=== PATIENT | female | born 1940 | race Caucasian/White ===

== ENCOUNTER 2017-06-20 12:56 | Day surgery (SDC) | payer MEDICARE, BC ==
[~2017-06-20] VITALS: Ht 165.2 cm; Wt 88.0 kg
[~2017-06-20 12:56] MED LIST: AMBIEN 10MG10 MG PO; APRESOLINE 25MG25 MG PO; ASPIRIN 81M81 MG/TA2 PO; BETAPACE 80MG80 MG PO; CARDIZEM CD 24240 MG PO; CATAPRES-TTS 10.1 M1 TD; COREG 25MG25 MG/TAB PO; COZAAR100 MG PO; EDARBI80 MG PO; HCTZ 25MG TAB25 MG PO; HYDROCORTISO28.35 G1 TP; LIPITOR 40MG TA40 MG PO; LOPRESSOR 225 MG/TAB PO; NORVASC 10MG10 MG PO; PRADAXA 150MG150 MG PO; PREDFORTE15ML OU; RT SPIRIVA18 MCG IH; THEO-24 20200 MG/CAP PO; TIKOSYN0.125 MG PO; XARELTO20 MG PO
[2017-06-20 14:02] VITALS: BP 151/48; PULSE 66; TEMP 98.5
[2017-06-20 14:08] LABS: POTASSIUM 4.6 mmol/L (3.4-5.0)
[2017-06-20] MEDS ORDERED: IMDUR 60MG60 MG/TAB PO (14:10)
[2017-06-20] MEDS ORDERED: FERROUS GL325 MG/TAB (14:11)
[2017-06-20] MEDS ORDERED: PACERONE200 MG PO (14:11)
[2017-06-20] MEDS ORDERED: XARELTO20 MG PO (14:12)
[2017-06-20 14:40] VITALS: BP 144/46; PULSE 70
[2017-06-20 14:42] LABS: THYROID STIMULATING HORMONE 3.4 uIU/mL (0.465-4.680)
[2017-06-20 15:15] VITALS: BP 112/36; PULSE 58; TEMP 98
[2017-06-20 15:30] VITALS: BP 126/77; PULSE 60
[2017-06-20 15:45] VITALS: BP 138/45; PULSE 59
[2017-06-20 16:00] VITALS: BP 148/48; PULSE 60
== END 2017-06-20 16:40 | disposition home or self-care (01) ==
LOC: COL.CAR 12:56
PROVIDERS: Internal Medicine Cardiovascular Disease
DX: I48.0 Paroxysmal atrial fibrillation (principal); I10 Essential (primary) hypertension; I25.10 Atherosclerotic heart disease of native coronary artery without angina pectoris; I27.20 Pulmonary hypertension, unspecified; J44.9 Chronic obstructive pulmonary disease, unspecified; G47.33 Obstructive sleep apnea (adult) (pediatric); E78.2 Mixed hyperlipidemia; E66.9 Obesity, unspecified; I34.0 Nonrheumatic mitral (valve) insufficiency; Z68.34 Body mass index [BMI] 34.0-34.9, adult; Z87.891 Personal history of nicotine dependence; Z82.49 Family history of ischemic heart disease and other diseases of the circulatory system
CPT/HCPCS: J2250; J3010

== ENCOUNTER 2017-08-08 10:35 | Emergency (ER) | payer MEDICARE, BC ==
[~2017-08-08] VITALS: Ht 165.1 cm; Wt 83.2 kg
[~2017-08-08 10:35] MED LIST changes: +CATAPRES-TTS 20.2 M1 TD; +FERROUS GL325 MG/TAB; +IMDUR 60MG60 MG/TAB PO; +PACERONE200 MG PO
[2017-08-08 10:39] VITALS: TEMP 98.8
[2017-08-08 11:16] LABS: BASO % 0.3 % (0.0-2.0); EOS # 0.1 (0.0-0.7); EOS % 1.1 % (0-4.0); GRAN # 5.5 (1.4-6.5); GRAN % 78.5 % (42.2-75.2); LYMPH # 0.7 (1.2-3.4); LYMPH % 9.5 % (20.0-51.0); MEAN CELL VOLUME 80 fl (80.0-100.0); MEAN CORPUSCULAR HGB CONC 31 g/dl (33.0-37.0); MONO # 0.7 (0.1-0.6); MONO % 10.2 % (1.7-9.3); PLATELET COUNT 251 K/mm3 (130-400); RED BLOOD COUNT 2.43 M/mm3 (4.10-5.30); REDCELL DISTRIBUTION WIDTH-CV 15.4 % (11.5-14.5)
[2017-08-08 11:23] LABS: HEMATOCRIT 19.4 % (37.0-47.0); HEMOGLOBIN 6.1 g/dl (12.5-16.0); MEAN CORPUSCULAR HEMOGLOBIN 25 pg (27.0-31.0)
[2017-08-08 11:35] LABS: INR 2.4 (0.8-3.0); PROTHROMBIN TIME 28.1 SECONDS (9.7-12.8)
[2017-08-08 11:37] LABS: PARTIAL THROMBOPLASTIN TIME 35.4 SECONDS (26.0-37.0)
[2017-08-08 12:35] LABS: CALCIUM 9.2 mg/dL (8.4-10.2); CREATININE, serum 1.13 mg/dL (0.52-1.25); POTASSIUM 4.1 mmol/L (3.4-5.0)
[2017-08-08 13:34] VITALS: BP 145/52; PULSE 74
== END 2017-08-08 13:35 | disposition home or self-care (01) ==
LOC: COL.ER 10:35
PROVIDERS: Emergency Medicine
DX: D64.9 Anemia, unspecified (principal); I48.91 Unspecified atrial fibrillation; Z79.82 Long term (current) use of aspirin

== ENCOUNTER 2017-08-08 13:50 | Outpatient (RCR) | payer MEDICARE, BC ==
[~2017-08-08] VITALS: Ht 165.1 cm; Wt 88.6 kg
[2017-08-08] VITALS (9 sets, daily range): BP systolic 130–152; BP diastolic 35–56; PULSE 66–79; TEMP 97.8
== END 2017-08-08 18:23 | disposition home or self-care (01) ==
LOC: EDSTATUS 13:50 → EUO 13:50
DX: D64.9 Anemia, unspecified (principal); Z86.79 Personal history of other diseases of the circulatory system
CPT/HCPCS: J7050; P9016

== ENCOUNTER 2017-08-22 09:56 | Day surgery (SDC) | payer MEDICARE, BC ==
[~2017-08-22] VITALS: Ht 165.1 cm; Wt 82.2 kg
[2017-08-22 10:15] VITALS: BP 160/56; PULSE 80; TEMP 97.7
[2017-08-22] MEDS ORDERED: PACERONE100 MG PO (10:18)
[2017-08-22] MEDS ORDERED: FERRO-TIME325 MG PO ×2 (10:23)
[2017-08-22 10:39] LABS: HEMOGLOBIN 7.8 g/dl (12.5-16.0)
[2017-08-22 12:05] VITALS: BP 146/58; PULSE 77; TEMP 97.7
[2017-08-22 12:20] VITALS: BP 155/57; PULSE 73
[2017-08-22 12:35] VITALS: BP 165/61; PULSE 73
[2017-08-22] MEDS ORDERED: ZANTAC 150MG T150 MG PO (13:03)
[2017-08-22 14:48] VITALS: BP 116/57; PULSE 61
== END 2017-08-22 13:15 | disposition home or self-care (01) ==
LOC: SDCO 09:56
PROVIDERS: Nurse Anesthetist, Certified Registered
DX: D12.4 Benign neoplasm of descending colon (principal); D12.2 Benign neoplasm of ascending colon; K57.30 Diverticulosis of large intestine without perforation or abscess without bleeding; K64.0 First degree hemorrhoids; D64.9 Anemia, unspecified; E11.9 Type 2 diabetes mellitus without complications; I48.91 Unspecified atrial fibrillation; I10 Essential (primary) hypertension; I25.10 Atherosclerotic heart disease of native coronary artery without angina pectoris; K29.30 Chronic superficial gastritis without bleeding; J44.9 Chronic obstructive pulmonary disease, unspecified; K21.9 Gastro-esophageal reflux disease without esophagitis; G47.33 Obstructive sleep apnea (adult) (pediatric); Z86.010 Personal history of colon polyps; Z79.01 Long term (current) use of anticoagulants; Z90.710 Acquired absence of both cervix and uterus; Z87.891 Personal history of nicotine dependence; K31.82 Dieulafoy lesion (hemorrhagic) of stomach and duodenum
CPT/HCPCS: OP; J2704; J3010; J7120

== ENCOUNTER 2017-09-04 13:33 | Outpatient (RCR) | payer MEDICARE, BC ==
[2017-09-04] VITALS (7 sets, daily range): BP systolic 150–180; BP diastolic 36–54; PULSE 52–75; TEMP 97.7–98
[~2017-09-04] VITALS: Ht 165.1 cm; Wt 81.8 kg
[~2017-09-04 13:33] MED LIST changes: +FERRO-TIME325 MG PO; +PACERONE100 MG PO; +ZANTAC 150MG T150 MG PO
== END 2017-09-04 19:02 | disposition home or self-care (01) ==
LOC: EUO 13:33
DX: D50.8 Other iron deficiency anemias (principal)
CPT/HCPCS: J7050; P9016

== ENCOUNTER 2021-03-28 12:34 | Observation (INO) | payer MEDICARE, BC ==
[~2021-03-28] VITALS: Ht 165.1 cm; Wt 86.8 kg
[~2021-03-28 12:34] MED LIST changes: +ELIQUIS 5MG PO; +LASIX 40MG TABL40 MG PO; +LEXAPRO 10MG10 MG PO; +PEPCID 20MG TAB20 MG PO; +PROTONIX 40MG T40 MG PO
[2021-03-28 14:37] LABS: HEMATOCRIT 37.8 % (37.0-47.0); HEMOGLOBIN 12.3 g/dl (12.5-16.0); MEAN CELL VOLUME 90 fl (80.0-100.0); MEAN CORPUSCULAR HEMOGLOBIN 29 pg (27.0-31.0); MEAN CORPUSCULAR HGB CONC 33 g/dl (33.0-37.0); MEAN PLATELET VOLUME 10.5 fl (7.4-10.4); PLATELET COUNT 225 K/mm3 (130-400); RED BLOOD COUNT 4.21 M/mm3 (4.10-5.30); REDCELL DISTRIBUTION WIDTH-CV 14.4 % (11.5-14.5)
[2021-03-28 14:47] LABS: ALANINE AMINOTRANSFERASE 22 U/L (4-34); ALBUMIN 4.5 gm/dL (3.5-5.0); ALKALINE PHOSPHATASE 65 U/L (50-136); ANION GAP 11 mmol/L (7-16); AST,SGOT 28 U/L (15-37); BILIRUBIN,TOTAL 0.3 mg/dL (0.0-1.0); BLOOD UREA NITROGEN 19 mg/dL (7-17); CALCIUM 9.1 mg/dL (8.4-10.2); CARBON DIOXIDE 22 mmol/L (22-30); CHLORIDE 107 mmol/L (98-107); CREATININE, serum 0.81 (0.52-1.25); GLUCOSE 137 mg/dL (74-106); POTASSIUM 3.7 mmol/L (3.4-5.0); SODIUM 140 mmol/L (137-145); TOTAL PROTEIN 7.9 gm/dL (6.4-8.2)
[2021-03-28 15:06] LABS: LYMPHOCYTE 4 % (20.0-51.0); NEUTROPHILS 93 % (42.0-75.2)
[2021-03-28 15:07] LABS: PLATELET ESTIMATE NORMAL (NORMAL)
[2021-03-28 15:17] LABS: TROPONIN-I < 0.012 ng/mL (0.000-0.035)
[2021-03-28 19:40] LABS: MEAN CELL VOLUME 88 fl (80.0-100.0); MEAN CORPUSCULAR HEMOGLOBIN 29 pg (27.0-31.0); MEAN CORPUSCULAR HGB CONC 33 g/dl (33.0-37.0); MEAN PLATELET VOLUME 10.6 fl (7.4-10.4); PLATELET COUNT 207 K/mm3 (130-400); RED BLOOD COUNT 4.11 M/mm3 (4.10-5.30); REDCELL DISTRIBUTION WIDTH-CV 14.2 % (11.5-14.5)
[2021-03-28 19:41] LABS: HEMATOCRIT 36.1 % (37.0-47.0)
[2021-03-28 19:55] LABS: BAND 2 % (0-10); LYMPHOCYTE 2 % (20.0-51.0); NEUTROPHILS 96 % (42.0-75.2); PLATELET ESTIMATE NORMAL (NORMAL)
[2021-03-28] MEDS ORDERED: ELIQUIS 5MG PO (20:24)
[2021-03-28] MEDS ORDERED: K-DUR20 MEQ PO ×2 (20:25→21:13)
[2021-03-28] MEDS ORDERED: AMBIEN 10MG10 MG PO (20:25)
[2021-03-28] MEDS ORDERED: EDLUAR10 MG SL (20:25)
--- NOTE | 2021-03-28 20:54 | NUR ---
Patient came to the unit at 2030. She is alert and oriented x 4. She has some cough and congestion. Patient is independent. Tele iin place. No complains of pain, nausea or vomiting. Assessment and med rec done. No further needs at this time. Call light within reach.
[2021-03-28] MEDS ORDERED: MONODOX100 PO (21:12)
[2021-03-28] MEDS ORDERED: PREDNISONE20 MG PO (21:13)
[2021-03-28 22:55] VITALS: BP 175/46; PULSE 86; TEMP 97.6
[2021-03-28 23:43] VITALS: BP 159/49; PULSE 88; TEMP 97.9
[2021-03-29 03:34] LABS: COLLECTION METHOD CLEAN CATCH
[2021-03-29 03:41] LABS: MUCOUS Present /lpf; PH 5 (5-8); SQUAMOUS EPITHELIAL None Seen /hpf; URINE APPEARANCE Clear; URINE BACTERIA Rare /hpf; URINE BILIRUBIN Negative (NEGATIVE); URINE BLOOD 1+ (NEGATIVE); URINE COLOR Straw; URINE GLUCOSE Negative (NEGATIVE); URINE KETONE Negative (NEGATIVE); URINE LEUKOCYTE ESTERASE Negative (NEGATIVE); URINE NITRATE Negative (NEGATIVE); URINE PROTEIN(semi-quant) Negative (NEGATIVE); URINE RBC 0-2 /hpf; URINE UROBILINOGEN Negative (NEGATIVE)
[2021-03-29 04:02] VITALS: BP 142/50; PULSE 78; TEMP 98
[2021-03-29 04:06] VITALS: BP 130/88; PULSE 74; TEMP 97.9
[2021-03-29 07:42] LABS: CALCIUM 8.7 mg/dL (8.4-10.2); CREATININE, serum 0.94 (0.52-1.25); POTASSIUM 3.2 mmol/L (3.4-5.0)
[2021-03-29 08:10] VITALS: BP 147/53; PULSE 86; TEMP 98.3
--- NOTE | 2021-03-29 10:01 | NUR ---
Assessment completed, alert/disoriented and agigated and impulsive, patient is on room air and o2 sats are WNL, her lungs are CTA as far as I can tell and CXR yesterday was clear, heart irregular/ she is not on telemetry but has hx of A.fib, patient refuses IV and lab work, her daughter osmel got here and is able to help with patient as she is contakerous, she did allow us to check a temperature with danielle help and i afebrile, urine culture grew E.coli and patient is on Omniceff for that, oscar reports she "looks so much better today" and hopes we can discharge back to [facility] today
[2021-03-29 11:20] VITALS: BP 162/46; PULSE 79; TEMP 98
[2021-03-29 16:14] VITALS: BP 127/47; PULSE 67; TEMP 98.3
--- NOTE | 2021-03-29 20:00 | NUR ---
Report received, assumed care for shift superintendent caustic cresylate. Assessment complete. A&Ox3. Denies pain/nausea/shortness of breath. VS stable. Sitting up in chair watching TV. States she is only short of breath a "little bit" with ambulation. Currently on room air. Plan of care discussed for this shift to include medications/breathing tx/calling for questions/concerns. Verbalizes understanding/denies needs. Call light in reach. Will monitor.
[2021-03-29 20:19] VITALS: BP 137/76; PULSE 81; TEMP 97.4
[2021-03-30 00:04] VITALS: BP 144/68; PULSE 88; TEMP 97.8
[2021-03-30 04:13] VITALS: BP 117/39; PULSE 78; TEMP 98.3
--- NOTE | 2021-03-30 05:45 | NUR ---
Rested well later in shift. States she stays up very late and the ambien doesnt help much anymore. Denied pain/nausea/shortness of breath. VS remained stable-on room air. Call light in reach. Will monitor.
--- NOTE | 2021-03-30 07:19 | NUR ---
REPORT RECEIVED FROM GIACOMO RAMIREZ. PT ASLEEP IN BED. BREATHING REGULAR/UNLABORED. CALL ORNELAS IN REACH.
[2021-03-30 07:25] LABS: BASO % 0.1 % (0.0-2.0); GRAN # 10.1 (1.4-6.5); GRAN % 87.6 % (42.2-75.2); HEMOGLOBIN 10.7 g/dl (12.5-16.0); LYMPH # 0.6 (1.2-3.4); LYMPH % 5.4 % (20.0-51.0); MEAN CELL VOLUME 91 fl (80.0-100.0); MEAN CORPUSCULAR HEMOGLOBIN 30 pg (27.0-31.0); MEAN CORPUSCULAR HGB CONC 33 g/dl (33.0-37.0); MEAN PLATELET VOLUME 10.8 fl (7.4-10.4); MONO # 0.7 (0.1-0.6); MONO % 6.4 % (1.7-9.3); PLATELET COUNT 196 K/mm3 (130-400); RED BLOOD COUNT 3.56 M/mm3 (4.10-5.30); REDCELL DISTRIBUTION WIDTH-CV 14.4 % (11.5-14.5)
[2021-03-30 07:26] LABS: HEMATOCRIT 32.5 % (37.0-47.0)
[2021-03-30 07:41] LABS: CALCIUM 8.2 mg/dL (8.4-10.2); CREATININE, serum 1.04 (0.52-1.25); POTASSIUM 3.7 mmol/L (3.4-5.0)
[2021-03-30 09:00] VITALS: BP 117/44; PULSE 76; TEMP 98.1
[2021-03-30] MEDS ORDERED: COZAAR 25MG25 MG/TAB PO (10:40)
--- NOTE | 2021-03-30 11:16 | NUR ---
PT HAS A-FIB
--- NOTE | 2021-03-30 12:22 | NUR ---
painting worker met with patient to discuss discharge planning. Patient states she lives alone and is independent with her activities of daily living and denies home concerns. Patient states she has a care in parking lot and will drive home today. Patient states her primary care provider is Dr Rakesh Chapman. Patient states that her son lives close to her and is supportive of any needs. Patient will discharge home today.
--- NOTE | 2021-03-30 12:46 | NUR ---
Pt discharged. Reviewed discharge instructions; questions invited and answered. Pt denies any other needs at this time. IV and tele monitor removed. [facility] employee escorted pt to her car.
== END 2021-03-30 12:53 | disposition home or self-care (01) ==
LOC: COL.ER 12:34 → MEDICAL 18:30
PROVIDERS: Nurse Practitioner Family; Personal Emergency Response Attendant; Physician Assistant; ADMIT Internal Medicine
DX: J44.1 Chronic obstructive pulmonary disease with (acute) exacerbation (principal); B34.8 Other viral infections of unspecified site; I27.20 Pulmonary hypertension, unspecified; E11.9 Type 2 diabetes mellitus without complications; I10 Essential (primary) hypertension; E78.5 Hyperlipidemia, unspecified; I48.91 Unspecified atrial fibrillation; Z20.822 Contact with and (suspected) exposure to COVID-19; D50.9 Iron deficiency anemia, unspecified; G47.33 Obstructive sleep apnea (adult) (pediatric); G47.00 Insomnia, unspecified; I07.1 Rheumatic tricuspid insufficiency; I42.0 Dilated cardiomyopathy; Z79.01 Long term (current) use of anticoagulants; Z79.899 Other long term (current) drug therapy; Z87.891 Personal history of nicotine dependence
CPT/HCPCS: A9284; G0378; J1940; J1956; J2930; J7509

== ENCOUNTER → 2023-09-28 | Outpatient (RCR) | payer MEDICARE, BC ==
[~2023-09-28] MED LIST changes: +COZAAR 25MG25 MG/TAB PO; +EDLUAR10 MG SL; +K-DUR20 MEQ PO; +MONODOX100 PO; +PREDNISONE20 MG PO
== END | disposition home or self-care (01) ==
LOC: MKS.ESL.PT
DX: M25.551 Pain in right hip (principal); M54.50 Low back pain, unspecified

== ENCOUNTER → 2024-05-02 | Outpatient (CLI) | payer MEDICARE, BC ==
[2024-05-02 21:20] LABS: BASOPHIL 1 % (0-2); EOSINOPHIL 5 % (0-4); LYMPHOCYTE 20 % (20.0-51.0); NEUTROPHILS 66 % (42.0-75.2)
[2024-05-02 21:21] LABS: PLATELET ESTIMATE NORMAL (NORMAL)
== END ==
LOC: ZCOL.LAB 19:31
PROVIDERS: Family Medicine
DX: D50.9 Iron deficiency anemia, unspecified (principal)